=== PATIENT | male | born 1965 | race Caucasian/White ===

== ENCOUNTER 2016-08-28 17:03 | Observation (INO) | payer OTHER ==
[~2016-08-28] VITALS: Ht 203.2 cm; Wt 117.0 kg
[2016-08-28 17:42] VITALS: BP 143/85; PULSE 90; TEMP 98.1
[2016-08-28 22:48] VITALS: BP 127/57; PULSE 62; TEMP 98.2
[2016-08-29 01:31] VITALS: BP 105/40; PULSE 59; TEMP 98.4
[2016-08-29 05:30] VITALS: BP 103/38; PULSE 54; TEMP 98.4
[2016-08-29 06:32] LABS: CREATININE, serum 1.3 mg/dL (0.66-1.25)
[2016-08-29 09:52] VITALS: BP 127/61; PULSE 52; TEMP 98.4
[2016-08-29 13:53] VITALS: BP 125/62; PULSE 50
[2016-08-29 18:18] VITALS: BP 134/82; PULSE 72; TEMP 98.3
== END 2016-08-29 20:40 | disposition home or self-care (01) ==
LOC: JCC 17:03
PROVIDERS: Urology
DX: N20.1 Calculus of ureter (principal); F17.220 Nicotine dependence, chewing tobacco, uncomplicated; N28.9 Disorder of kidney and ureter, unspecified
CPT/HCPCS: C1769; C2617; G0378; G0379; J0690; J1100; J2405; J2704; J3010; J7030; Q9967